=== PATIENT | male | born 1985 | race Caucasian/White ===

== ENCOUNTER 2019-05-03 07:05 | Emergency (ER) | payer OTHER ==
[~2019-05-03] VITALS: Ht 185.4 cm; Wt 90.7 kg
--- NOTE | 2019-05-03 07:10 | NUR ---
ARRIVAL PATIENT ARRIVED TO ER ACCOMPANIED BY SPOUSE. PT C/O RLQ RATED IT 4/10 AT THIS TIME BUT STATED IT GETS TO A 9/10. PAIN WOKE HIM UP AT 0200 AND VOMITTED AND AGAIN AT 0530. TRIAGE DONE DR SANTIAGO.
[2019-05-03 07:22] VITALS: BP 120/80
--- NOTE | 2019-05-03 07:52 | NUR ---
CT PATIENT TO RADIOLOGY FOR CT SCAN.
[2019-05-03 07:56] LABS: BASOPHIL # 0.1 10^3/uL (0.0-0.1); BASOPHIL % 0.7 % (0.0-0.2); EOSINOPHIL # 0.3 10^3/uL (0.0-0.2); EOSINOPHIL % 3.4 % (0.0-5.0); HEMOGLOBIN 15.1 g/dL (13.9-16.3); LYMPHOCYTES # 2.3 10^3/uL (1.0-4.8); LYMPHOCYTES % 31.7 % (24.0-44.0); MEAN CELL HGB 31.4 pg (26-34); MEAN CORP VOLUME 89.8 fL (78-100); MONOCYTES # 0.5 10^3/uL (0.3-0.8); MONOCYTES % 7.2 % (5.0-12.0); NEUTROPHIL # 4.1 10^3/uL (1.8-7.7); NEUTROPHILS % 56.7 % (41.0-85.0); RED CELL DISTRIBUTION WIDTH 13.8 % (11.5-14.5); WHITE BLOOD CELL 7.3 10^3/uL (4.5-11.0)
[2019-05-03] MEDS ORDERED: NS 1000ML 1,000 ML IV ONE (08:00)
[2019-05-03 08:20] LABS: CALCIUM 9.3 mg/dL (8.4-10.5); CARBON DIOXIDE 27.4 mmol/L (20.0-32)
--- NOTE | 2019-05-03 08:27 | DIREP ---
PROCEDURE:CT ABDOMEN/PELVIS W/O CONTRAST COMPARISON:None. INDICATIONS:RLQ PAIN TECHNIQUE:Axial images were created through the abdomen and pelvis without intravenous contrast material. No oral contrast was administered. Sagittal and coronal reconstructions were performed from source images. FINDINGS: LUNG BASES:Bibasilar dependent atelectatic change. LIVER:Diffuse hypoattenuation, consistent with fatty change. No focal lesion. BILIARY:Normal. No visible dilatation or calcification. PANCREAS:Normal. No lesion, fluid collection, ductal dilatation, or atrophy. SPLEEN:Normal. No enlargement or focal lesion. ADRENALS:Normal. No mass or enlargement. URINARY TRACT:No hydronephrosis, nephrolithiasis, or ureteral calculi. Urinary bladder underdistended, limiting evaluation. AORTA/VASCULAR:Limited without IV contrast. No aortic aneurysmal dilatation. RETROPERITONEUM:Normal. No mass or adenopathy. BOWEL/MESENTERY:No free air. Lack of oral contrast limits evaluation of the bowel structures. No small bowel dilatation seen to suggest obstruction. Appendix not definitively identified. No definite right lower quadrant inflammatory changes are identified. ABDOMINAL WALL:Normal. No mass or hernia. PELVIC ORGANS:Normal. No visible mass. Pelvic organs appropriate for patient age. BONES:Normal for age. No bony lesion or acute fracture. OTHER:Negative. CONCLUSION: 1. Appendix not definitively identified. No right lower quadrant inflammatory change. 2. No bowel obstruction. 3. Hepatic steatosis without focal lesion. 4. Additional findings as described. Dictated by: Kyaw Don MD on 05/03/2019 at 08:16 AM
--- NOTE | 2019-05-03 08:40 | ER.PDOC ---
General Chief Complaint: Abdomen Pain Stated Complaint: RT SIDE ABD PAIN, RLQ > RUQ Time seen by MD: 08:33 Source: patient Exam Limitations: no limitations History of Present Illness Timing/Duration: 4-6 hours Severity/Quality: mild Radiation: no radiation Associated Symptoms: nausea/vomiting Relieved By: remaining still Allergies: Coded Allergies: No Known Allergies (Unverified , 06/23/13) Home Meds No Active Prescriptions or Reported Meds Vital Signs First Vital Signs Date Time Temp Pulse Resp B/P (MAP) Pulse Ox O2 Delivery O2 Flow Rate FiO2 05/03/19 07:22 97.8 79 18 97.8 05/03/19 07:22 120/80 (93) 97 Room Air Last Vital Signs Date Time Temp Pulse Resp B/P (MAP) Pulse Ox O2 Delivery O2 Flow Rate FiO2 05/03/19 07:22 76 18 96 Room Air 05/03/19 07:22 97.8 120/80 (93) 97.8 Past Medical History Medical History: asthma, cardiac problems, heart attack Surgical History: no surgical history Social History Smoking: greater than 1 pack/day Alcohol Use: rarely Drug Use: none Reviewed Nursing Reviewed: Vital Signs, Abn. Noted All Other Systems: Reviewed and Negative Physical Exam General Appearance: No Apparent Distress, WD/WN HEENT: PERRL/EOMI, Normal ENT Inspection, TMs Normal, Pharynx Normal Neck: Non-Tender, Full Range of Motion, Supple, Normal Inspection Respiratory: chest non-tender, lungs clear, normal breath sounds, no respiratory distress, no accessory muscle use Cardiovascular: Normal Peripheral Pulses, Regular Rate, Rhythm, No Edema, No Gallop, No JVD, No Murmur Gastrointestinal: McBurneys point tender, Other (RUQ TENDERNESS) Back: Normal Inspection, No CVA Tenderness, No Vertebral Tenderness Extremities: Normal Range of Motion, Non-Tender, Normal Inspection, No Pedal Edema, No Calf Tenderness, Normal Capillary Refill, Pelvis Stable 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 (05/03/19 07:42) Urinalysis (05/03/19 07:42) Saline Lock (05/03/19 07:42) Ct Abd/Pelvis Wo Iv Contrast (05/03/19 07:42) 0.9 % Sodium Chloride (Ns 1000ml) (05/03/19 08:00) C-Reactive Protein (05/03/19 07:49) Vital Signs Date Time Temp Pulse Resp B/P (MAP) Pulse Ox O2 Delivery O2 Flow Rate FiO2 05/03/19 07:22 76 18 96 Room Air 05/03/19 07:22 97.8 79 18 120/80 (93) 97 Room Air 97.8 05/03/19 07:22 97.8 79 18 97.8 Laboratory Tests Test 05/03/19 07:42 05/03/19 07:50 White Blood Count 7.3 10^3/uL (4.5-11.0) Red Blood Count 4.81 10^6/uL (4.50-5.90) Hemoglobin 15.1 g/dL (13.9-16.3) Hematocrit 43.2 % (37.0-53.0) Mean Corpuscular Volume 89.8 fL (78-100) Mean Corpuscular Hemoglobin 31.4 pg (26-34) Mean Corpuscular Hemoglobin Concent 35.0 g/dL (33-37) Red Cell Distribution Width 13.8 % (11.5-14.5) Platelet Count 339 10^3/uL (150-400) Mean Platelet Volume 10.0 fL (7.8-11.0) Neutrophils (%) (Auto) 56.7 % (41.0-85.0) Lymphocytes (%) (Auto) 31.7 % (24.0-44.0) Monocytes (%) (Auto) 7.2 % (5.0-12.0) Neutrophils # (Auto) 4.1 10^3/uL (1.8-7.7) Lymphocytes # (Auto) 2.3 10^3/uL (1.0-4.8) Monocytes # (Auto) 0.5 10^3/uL (0.3-0.8) Absolute Immature Granulocyte (auto 0.02 10^3 u/L (0-2) Immature Granulocytes % 0.30 % (0.00-0.50) Eosinophils % 3.4 % (0.0-5.0) Basophils % 0.7 % (0.0-0.2) H Basophils # 0.1 10^3/uL (0.0-0.1) Eosinophil Count 0.3 10^3/uL (0.0-0.2) H Prothrombin Time 9.8 SEC (9.8-11.9) Prothrombin Time INR (Non-Therap) 1.0 PTT 24.8 SEC (24.67-30.72) Sodium Level 143 mmol/L (132-145) Potassium Level 4.2 mmol/L (3.6-5.2) Chloride Level 106.0 mmol/L (96-109) Carbon Dioxide Level 27.4 mmol/L (20.0-32) Anion Gap 13.8 Blood Urea Nitrogen 15 mg/dL (7-18) Creatinine 1.10 mg/dL (0.59-1.40) Estimated GFR () 91.6 (>/=60) BUN/Creatinine Ratio 13.0 Glucose Level 104 mg/dL (70-110) Calcium Level 9.3 mg/dL (8.4-10.5) Total Bilirubin 0.2 mg/dL (0.2-1.0) Aspartate Amino Transferase (AST) 17 U/L (0-35) Alanine Aminotransferase (ALT) 32 U/L (12-78) Alkaline Phosphatase 77 U/L (50-136) C-Reactive Protein 0.86 mg/dL (0.00-5.00) Total Protein 7.8 g/dL (6.4-8.2) Albumin 3.9 g/dL (3.4-5.0) Globulin 3.9 Amylase Level 41 U/L (25-115) Lipase 119 U/L (114-286) Helicobacter pylori Screen POSITIVE (NEGATIVE) Course Vitals & review Data Vital Sign - Last 24 Hours 05/03/19 05/03/19 05/03/19 07:22 07:22 07:22 Temp 97.8 97.8 97.8 97.8 Pulse 79 79 76 Resp 18 18 18 B/P (MAP) 120/80 (93) Pulse Ox 97 96 O2 Delivery Room Air Room Air Laboratory Tests Test 05/03/19 07:42 05/03/19 07:50 White Blood Count 7.3 10^3/uL Red Blood Count 4.81 10^6/uL Hemoglobin 15.1 g/dL Hematocrit 43.2 % Mean Corpuscular Volume 89.8 fL Mean Corpuscular Hemoglobin 31.4 pg Mean Corpuscular Hemoglobin Concent 35.0 g/dL Red Cell Distribution Width 13.8 % Platelet Count 339 10^3/uL Mean Platelet Volume 10.0 fL Neutrophils (%) (Auto) 56.7 % Lymphocytes (%) (Auto) 31.7 % Monocytes (%) (Auto) 7.2 % Neutrophils # (Auto) 4.1 10^3/uL Lymphocytes # (Auto) 2.3 10^3/uL Monocytes # (Auto) 0.5 10^3/uL Absolute Immature Granulocyte (auto 0.02 10^3 u/L Immature Granulocytes % 0.30 % Eosinophils % 3.4 % Basophils % 0.7 % Basophils # 0.1 10^3/uL Eosinophil Count 0.3 10^3/uL Prothrombin Time 9.8 SEC Prothrombin Time INR (Non-Therap) 1.0 Activated Partial Thromboplast Time 24.8 SEC Sodium Level 143 mmol/L Potassium Level 4.2 mmol/L Chloride Level 106.0 mmol/L Carbon Dioxide Level 27.4 mmol/L Anion Gap 13.8 Blood Urea Nitrogen 15 mg/dL Creatinine 1.10 mg/dL Estimated GFR () 91.6 BUN/Creatinine Ratio 13.0 Glucose Level 104 mg/dL Calcium Level 9.3 mg/dL Total Bilirubin 0.2 mg/dL Aspartate Amino Transf (AST/SGOT) 17 U/L Alanine Aminotransferase (ALT/SGPT) 32 U/L Alkaline Phosphatase 77 U/L C-Reactive Protein 0.86 mg/dL Total Protein 7.8 g/dL Albumin 3.9 g/dL Globulin 3.9 Amylase Level 41 U/L Lipase 119 U/L Helicobacter pylori Screen POSITIVE O2 Sat by Pulse Oximetry: 97 Departure Time of Disposition: 09:00 Disposition: 01 HOME, SELF-CARE Impression: Primary Impression: Abdominal pain Condition: Stable Referrals: PCP,UNKNOWN (PCP) PRIMARY CARE PROVIDER Scripts No Active Prescriptions or Reported Meds Comments RETURN IN 24 HRS Duration or Time Spent with Pa: 1 HR RAAD GUARDADO MD May 03, 2019 08:40
[2019-05-03 08:48] VITALS: BP 120/80
== END 2019-05-03 08:50 | disposition home or self-care (01) ==
LOC: ER 07:05
DX: R10.11 Right upper quadrant pain (principal); R11.2 Nausea with vomiting, unspecified; F17.210 Nicotine dependence, cigarettes, uncomplicated; I25.2 Old myocardial infarction; J45.909 Unspecified asthma, uncomplicated
CPT/HCPCS: 36415; 74176; 80053; 82150; 83690; 85025; 85610; 85730; 86140; 86677; 99285

== ENCOUNTER 2019-05-05 15:42 | Emergency (ER) | payer OTHER ==
[~2019-05-05] VITALS: Ht 185.4 cm; Wt 108.9 kg
[2019-05-05 16:49] VITALS: BP 121/77
--- NOTE | 2019-05-05 17:18 | ER.PDOC ---
General Chief Complaint: Abdomen Pain Stated Complaint: LOWER RIGHT AB PAIN Time seen by MD: 17:10 Source: patient Exam Limitations: no limitations History of Present Illness Initial Comments Pt started on Sunday with RLQ pain, he was seen in ER on Sunday and told that if pain continued that he should return to be re evaluated, pain continues and worse Timing/Duration: 1 week Severity/Quality: moderate, sharpness Radiation: RLQ, groin Associated Symptoms: nausea/vomiting Exacerbated by: movements Relieved By: nothing Allergies: Coded Allergies: No Known Allergies (Unverified , 06/23/13) Home Meds No Active Prescriptions or Reported Meds Vital Signs First Vital Signs Date Time Temp Pulse Resp B/P (MAP) Pulse Ox O2 Delivery O2 Flow Rate FiO2 05/03/19 08:48 79 05/05/19 16:35 97.7 17 97.7 05/05/19 16:35 97 Room Air 05/05/19 16:49 121/77 (92) Last Vital Signs Date Time Temp Pulse Resp B/P (MAP) Pulse Ox O2 Delivery O2 Flow Rate FiO2 05/05/19 16:49 97.7 77 17 121/77 (92) 97 Room Air 97.7 Past Medical History Medical History: no pertinent history Surgical History: no surgical history Social History Smoking: greater than 1 pack/day Alcohol Use: occassionally Drug Use: none Constitutional: no symptoms reported EENTM: no symptoms reported Respiratory: no symptoms reported Cardiovascular: no symptoms reported Gastrointestinal: see HPI Genitourinary: no symptoms reported Musculoskeletal: no symptoms reported Skin: no symptoms reported Psychiatric/Neurological: no symptoms reported Endocrine: no symptoms reported Hematologic/Lymphatic: no symptoms reported Physical Exam General Appearance: No Apparent Distress, WD/WN HEENT: PERRL/EOMI, Normal ENT Inspection, TMs Normal, Pharynx Normal Neck: Non-Tender, Full Range of Motion, Supple, Normal Inspection Respiratory: chest non-tender, lungs clear, normal breath sounds, no respiratory distress, no accessory muscle use Cardiovascular: Normal Peripheral Pulses, Regular Rate, Rhythm, No Edema, No Gallop, No JVD, No Murmur Gastrointestinal: Normal Bowel Sounds, No Organomegaly, No Pulsatile Mass, Soft, Rebound (RLQ), Tenderness, McBurneys point tender Back: Normal Inspection, No CVA Tenderness, No Vertebral Tenderness Extremities: Normal Range of Motion, Non-Tender, Normal Inspection, No Pedal Edema, No Calf Tenderness, Normal Capillary Refill, Pelvis Stable 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, No Motor/Sensory Deficits, Alert, Normal Mood/Affect, Oriented x 3 Skin: Normal Color, Warm/Dry Lymphatic: No Adenopathy Results/Orders Results/Orders Vital Signs Date Time Temp Pulse Resp B/P (MAP) Pulse Ox O2 Delivery O2 Flow Rate FiO2 05/05/19 16:49 97.7 77 17 121/77 (92) 97 Room Air 97.7 05/05/19 16:35 97.7 77 16 97 Room Air 97.7 05/05/19 16:35 97.7 77 17 97.7 Course Duration or Total Time Spent w: 1 HR Vitals & review Data Vital Sign - Last 24 Hours 05/05/19 05/05/19 05/05/19 16:35 16:35 16:49 Temp 97.7 97.7 97.7 97.7 97.7 97.7 Pulse 77 77 77 Resp 17 16 17 B/P (MAP) 121/77 (92) Pulse Ox 97 97 O2 Delivery Room Air Room Air Sepsis Infection Criteria Pres: None O2 Sat by Pulse Oximetry: 97 Departure Time of Disposition: 20:14 Disposition: 01 HOME, SELF-CARE Impression: Primary Impression: Right lower quadrant abdominal pain Condition: Stable Patient Instructions: Abdominal Pain Referrals: PCP,UNKNOWN (PCP) PRIMARY CARE PROVIDER Scripts No Active Prescriptions or Reported Meds Duration or Time Spent with Pa: IMANI MENG MD May 05, 2019 17:18
[2019-05-05] MEDS ORDERED: NS 1000ML 1,000 ML IV ONE (17:30)
[2019-05-05 17:32] LABS: BILIRUBIN,URINE NEGATIVE (NEGATIVE); UROBILINOGEN,URINE NORMAL (NEGATIVE)
[2019-05-05 17:34] LABS: APPEARANCE,URINE CLEAR (CLEAR); UA COLOR YELLOW (YELLOW)
[2019-05-05 17:34] LABS: BASOPHIL % 0.4 % (0.0-0.2); EOSINOPHIL # 0.1 10^3/uL (0.0-0.2); EOSINOPHIL % 1.3 % (0.0-5.0); HEMOGLOBIN 14.9 g/dL (13.9-16.3); LYMPHOCYTES # 2.4 10^3/uL (1.0-4.8); LYMPHOCYTES % 31.1 % (24.0-44.0); MEAN CELL HGB 30.7 pg (26-34); MEAN CELL HGB CONCENTRATION 34.3 g/dL (33-37); MEAN CORP VOLUME 89.5 fL (78-100); MEAN PLATELET VOLUME 9.8 fL (7.8-11.0); MONOCYTES # 0.5 10^3/uL (0.3-0.8); NEUTROPHIL # 4.7 10^3/uL (1.8-7.7); NEUTROPHILS % 61.1 % (41.0-85.0); RED CELL DISTRIBUTION WIDTH 13.7 % (11.5-14.5); WHITE BLOOD CELL 7.6 10^3/uL (4.5-11.0)
[2019-05-05 17:52] LABS: CALCIUM 9.5 mg/dL (8.4-10.5)
[2019-05-05] MEDS ORDERED: NS 1000ML 1,000 ML ONE (18:39)
[2019-05-05 18:45] VITALS: BP 145/69
[2019-05-05 20:00] VITALS: BP 131/87
--- NOTE | 2019-05-05 20:00 | DIREP ---
PROCEDURE:CT ABD/PELVIS WITH CONTRAST TECHNIQUE:The patient drank oral contrast material. Following the intravenous administration of contrast material, arterial phase cuts were obtained through the abdomen, followed by venous phase cuts through the abdomen and pelvis. The images were viewed at lung and soft tissue settings. Sagittal and coronal reconstructions are provided. COMPARISON:[facility], CT, CT ABD/PELVIS W/O, 05/03/2019, 07:49 AM. INDICATIONS:RLQ pain FINDINGS: LOWER CHEST:Minimal linear atelectasis is noted in the right lung base. LIVER:Hepatic steatosis is noted. No intrahepatic mass is seen. BILIARY:Normal. PANCREAS:Normal. SPLEEN:Normal. URINARY TRACT:No hydronephrosis is seen. No nephrolithiasis is noted. ADRENALS:Normal. AORTA/VASCULAR:Normal. RETROPERITONEUM:Normal. BOWEL/MESENTERY:Although the appendix is not identified with certainty, there is no indirect evidence such as inflammatory changes within the mesenteric fat to suggest appendicitis. There is a question of visualization of the proximal most aspect of the appendix which could represent a postoperative appendiceal stump. ABDOMINAL WALL:Normal. PELVIS:Normal. BONES:Normal. OTHER:Normal. CONCLUSION: 1. I do not see any CT evidence of appendicitis. The entirety the appendix is not definitely visualized but no inflammatory changes of the mesenteric fat or periappendiceal abscess are seen. There is question of visualization of a tiny portion of the appendix which may represent a postoperative appendiceal stump. 2. Hepatic steatosis. Dictated by: Leonides Andrew M.D. on 05/05/2019 at 07:50 PM
--- NOTE | 2019-05-05 20:28 | NUR ---
IV IV REMOVED BY BEKA CRYSTALLOGRAPHER
[2019-05-05 20:35] VITALS: BP 131/87
== END 2019-05-05 20:31 | disposition home or self-care (01) ==
LOC: ER 15:42
DX: R10.31 Right lower quadrant pain (principal); R11.2 Nausea with vomiting, unspecified; F17.210 Nicotine dependence, cigarettes, uncomplicated
CPT/HCPCS: 36415; 74177; 80053; 81002; 82150; 83690; 85025; 85610; 85730; 96360; 99285; J7030; Q9965

== ENCOUNTER 2021-06-07 14:08 | Emergency (ER) | payer OTHER ==
[~2021-06-07] VITALS: Ht 185.4 cm; Wt 88.5 kg
[2021-06-07 14:28] VITALS: BP 142/93
[2021-06-07 14:32] VITALS: BP 142/93
--- NOTE | 2021-06-07 14:33 | NUR ---
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 DOCTOR YUNG TO THE ROOM TO SEE PATIENT.
[2021-06-07] MEDS ORDERED: ULTRAM PO STA (14:34)
[2021-06-07] MEDS ORDERED: ULTRAM ONE (14:35)
--- NOTE | 2021-06-07 14:39 | ER.PDOC ---
General Chief Complaint: Extremities Stated Complaint: PAIN/LEFT KNEE Time seen by MD: 14:36 Source: patient Exam Limitations: no limitations History of Present Illness Initial Comments Left knee pain for 3 weeks. Patient denies injury. No fever or chills. Pain is worse with movement. Where: home Severity: moderate Exacerbated By: walking movement Relieved By: rest Allergies: Coded Allergies: No Known Allergies (Unverified , 06/23/13) Home Meds No Active Prescriptions or Reported Meds Past Medical History Medical History: cardiac problems Surgical History: cardiac cath Family History Significant Family History: no pertinent family hx Social History Smoking: greater than 1 pack/day Alcohol Use: occassionally Drug Use: none Review of Systems Constitutional: no symptoms reported EENTM: no symptoms reported Respiratory: no symptoms reported Cardiovascular: no symptoms reported Gastrointestinal: no symptoms reported Musculoskeletal: see HPI All Other Systems: Reviewed and Negative Physical Exam General Appearance: Alert, No Apparent Distress Lower Extremity: tenderness (Left knee without deformity, swelling, redness or erythema.) Joint Exam: joints nml, nml ROM, nml gait/weight bearing Vascular: no vascular compromise, pulses full/equal Neuro/Psych: sensation nml, motor nml, oriented x3, CN's nml as tested, mood/affect nml Skin: color nml, warm/dry, no rash Back/Neck: nml inspection EENT: eyes inspection nml, ENT inspection nml, pharynx nml Respiratory: no resp distress, breath sounds nml CVS: reg rate & rhythm, heart sounds nml Abdomen: non-tender, no organomegaly, no bruit/mass Results/Orders Results/Orders Orders - ZACHARY BARRAGAN MD Xr Knee Lt 2v (06/07/21 14:34) Tramadol Hcl (Ultram) (06/07/21 14:34) Tramadol Hcl (Ultram) (06/07/21 14:35) Vital Signs Date Time Temp Pulse Resp B/P (MAP) Pulse Ox O2 Delivery O2 Flow Rate FiO2 06/07/21 14:32 98.7 94 18 142/93 (109) 97 Room Air 06/07/21 14:28 98.7 94 18 97 06/07/21 14:28 98.7 94 18 142/93 (109) 97 Room Air 06/07/21 14:28 98.7 94 18 Administered Medications Medications (Trade) Dose Ordered Sig/Susana Route PRN Reason Start Time Stop Time Status Last Admin Dose Admin Tramadol HCl (Ultram) 50 mg STAT STAT PO 06/07/21 14:34 06/07/21 14:35 DC 06/07/21 14:38 50 MG EKG/XRAY/CT/US XRAY Comments: No acute bony abnormality of left knee ER DEPART Departure Time of Disposition: 14:55 Disposition: 01 HOME / SELF CARE / HOMELESS Impression: Primary Impression: Chronic knee pain Condition: Stable Referrals: ANGELIQUE PEDROZA (PCP) PRIMARY CARE PROVIDER Additional Instructions: Diclofenac Continue with knee brace at home Follow up with Dr. Talley next week Return to ED if worsening symptoms or concerns Scripts No Active Prescriptions or Reported Meds Duration or Time Spent with Pa: 10 min Problem Qualifiers Primary Impression: Chronic knee pain Laterality: left Qualified Codes: M25.562 - Pain in left knee; G89.29 - Other chronic pain ZACHARY BARRAGAN MD Jun 07, 2021 14:39
--- NOTE | 2021-06-07 14:55 | DIREP ---
PROCEDURE:XRAY KNEE 2 VWS-LT COMPARISON:None. INDICATIONS:pain FINDINGS: BONES:No acute fracture. JOINTS:Joint spaces appear relatively preserved. SOFT TISSUES:Moderate to large suprapatellar joint effusion. OTHER:No additional findings. CONCLUSION: 1. No acute osseus abnormality or significant degenerative joint disease. 2. Moderate to large suprapatellar joint effusion does raise concern for potential internal derangement. Consider further evaluation with MRI as clinically warranted. Dictated by: Reji Antonio M.D. On 06/07/2021 at 02:53 PM
[2021-06-07 14:58] VITALS: BP 135/78
== END 2021-06-07 15:03 ==
LOC: ER 14:08
DX: M25.562 Pain in left knee (principal); G89.29 Other chronic pain; F17.210 Nicotine dependence, cigarettes, uncomplicated
CPT/HCPCS: 99283; 73560-LT